=== PATIENT | female | born 1995 | race Caucasian/White ===

== ENCOUNTER 2016-12-10 15:43 | Emergency (ER) | payer MEDICAID, OTHER ==
[~2016-12-10] VITALS: Ht 157.5 cm; Wt 72.6 kg
[2016-12-10] MEDS ORDERED: OLANZapine 5 MG TAB PO ONE (16:15)
[2016-12-10] MEDS ORDERED: LORazepam 2MG/ML-1ML VIAL ONE (16:16)
[2016-12-10] MEDS ORDERED: diphenhdrAMINE HCL 50 MG/1 ML VL ONE (16:17)
[2016-12-10] MEDS ORDERED: HALOPERIDOL LACTATE 5 MG/ML INJ VIAL ONE (16:17)
[2016-12-10] MEDS ORDERED: HALOPERIDOL LACTATE 5 MG/ML INJ VIAL IM ONE (16:30)
[2016-12-10] MEDS ORDERED: diphenhdrAMINE HCL 50 MG/1 ML VL IM ONE (16:30)
[2016-12-10] MEDS ORDERED: LORazepam 2MG/ML-1ML VIAL IM ONE (16:30)
[2016-12-10 17:13] LABS: Basophils # (auto) 0.1 uL; Basophils % (auto) 0.5 % (0.0-2.0); CONDITION Y; Eosinophils # (auto) 0.3 uL; Eosinophils % (auto) 2.5 % (0.0-7.0); Hematocrit 37.6 % (36.0-46.0); Hemoglobin 12.6 g/dL (12.2-16.2); Lymphocytes # (auto) 3.5 uL; Lymphocytes % (auto) 31.5 % (10.0-50.0); Mean Corpuscular Hemoglobin 28.5 pg (28.0-32.0); Mean Corpuscular Hgb Conc. 33.3 g/dL (32.0-36.0); Mean Corpuscular Volume 85.3 fL (80.0-100.0); Mean Platelet Volume 9.2 fL (7.4-10.4); Monocytes # (auto) 0.9 uL; Monocytes % (auto) 7.8 % (0.0-12.0); Neutrophils # (auto) 6.5 uL; Neutrophils % (auto) 57.7 % (37.0-80.0); Platelet Count (auto) 419 10^3/uL (140-450); Red Cell Distribution Width 14.2 % (11.6-16.0); White Blood Cell 11.2 10^3/uL (4.4-10.8)
[2016-12-10 17:31] LABS: Albumin 3.8 g/dL (3.4-5.0); Anion Gap 11 (5-15); Blood Urea Nitrogen 7 mg/dL (7-18); Calcium 9.3 mg/dL (8.5-10.1); Carbon Dioxide 25 mmol/L (21-32); Chloride 110 mmol/L (98-107); Glucose 86 mg/dL (74-106); Potassium 3.7 mmol/L (3.5-5.1); Sodium 146 mmol/L (136-145)
[2016-12-10 17:34] LABS: Aspartate Aminotransferase 15 U/L (15-37); BUN/Creatinine Ratio 11.5; GFR African American 161 mL/min; GFR Non-African American 133 mL/min
[2016-12-10 17:36] LABS: Alkaline Phosphatase 98 U/L (45-117); Bilirubin, Total 0.4 mg/dL (0.2-1.0); Total Protein 7.1 g/dL (6.4-8.2)
[2016-12-12 08:35] VITALS: BP 105/53
[2016-12-12] MEDS ORDERED: OLANZapine 5 MG TAB PO SCH (10:00)
[2016-12-12] MEDS ORDERED: OLANZapine 5 MG TAB ONE (10:17)
== END 2016-12-13 11:37 | disposition home or self-care (01) ==
LOC: ER 15:54
DX: F29 Unspecified psychosis not due to a substance or known physiological condition (principal); F31.9 Bipolar disorder, unspecified; F17.210 Nicotine dependence, cigarettes, uncomplicated; F12.10 Cannabis abuse, uncomplicated
CPT/HCPCS: 36415; 80053; 80307; 80320; 85025; 96372; 99285; J1200; J1630; J2060